=== PATIENT | female | born 2000 | race Caucasian/White ===

== ENCOUNTER 2023-11-04 08:15 | Outpatient (RCR) | payer MEDICAID, SELFPAY | END 2024-01-31 23:59 | disposition home or self-care (01) | LOC: ANHLAB 08:15 | PROVIDERS: Visit Provider Obstetrics & Gynecology | DX: O36.0130 Maternal care for anti-D [Rh] antibodies, third trimester, not applicable or unspecified (principal); O20.0 Threatened abortion; Z3A.00 Weeks of gestation of pregnancy not specified | CPT/HCPCS: 36415; 84702; 85461; 86850; 86900; 86901 ==

== ENCOUNTER 2023-11-04 08:36 | Emergency (ER) | payer MEDICAID, SELFPAY ==
--- NOTE | ~2023-11-04 | US_ITS ---
US OB <= 14 weeks fetus DATE: 11/04/2023 11:14 INDICATION: Intermittent vaginal spotting/bleeding for 3 days. No pelvic pain. Positive urine pregnan cy test. TECHNIQUE: Real-time and color flow imaging and Doppler analysis COMPARISON: None FINDINGS: Uterus measures 11.6 cm vertical and 4.9 cm anteroposterior dimension. Live single intrauterine gestation is identified. pole and yolk sac are identified. heart rate 141 bpm. [place]-rump length of 1.02 cm is consistent with 7 weeks 1 day +/- 5 days estimated gestational age wi th NENA of 06/21/2024. Right ovary 3.7 x 2.3 x 2.5 cm with vascular flow. There is a 1.8 x 1.5 cm right corpus luteum cyst. Left ovary 2.9 x 1.6 x 1.8 cm, with vascular flow. No pelvic mass lesion or abnormal pelvic fluid collection is detected. IMPRESSION: Early intrauterine gestational Estimated gestational age of 7 weeks 1 day +/- 5 days NENA: 06/21/2019 Reviewed, dictated and finalized at [facility] Reviewed, dictated and finalized at [facility].
[2023-11-04 08:39] VITALS: BP 131/97; PULSE 100; RESP 19; TEMP 36.9; O2SAT 97
--- NOTE | 2023-11-04 10:33 | ED.FEMALEGU ---
HPI - Female Genitourinary General Chief complaint: Vaginal Bleeding Stated complaint: 8 Weeks Preg, Spotting Time Seen by Provider: 11/04/23 09:51 Source: patient and other (boyfriend) Mode of arrival: ambulatory Limitations: no limitations History of Present Illness HPI Narrative: Patient is a 23 yo female at estimated 8weeks by report who presents with vaginal bleeding/spotting which started . She had gotten a BHCG drawn 11/01 and had a level drawn earlier this morning outpatient. She is due to establish with Ly Scott through [facility] at an appointment coming up Monday but otherwise has not had confirmation of an intrauterine (no imaging yet). She Had a positive home test and a positive test though [facility]. She has had abdominal cramping for the last few days, right greater than left. Not yet taken anything for pain. No history of STIs. Sexually active with only 1 male partner (boyfriend Gunner) in the past few months. 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 HEAD: Normocephalic, atraumatic. EYES: Non injected, non icteric ENT: Nares clear, no rhinorrhea or epistaxis. NECK: Supple. CHEST: Speaking in full sentences. No respiratory distress. HEART: Regular rate and rhythm. . ABDOMEN: Soft, nondistended. EXTREMITIES: Normal range of motion. No edema. : Pelvic exam performed with nurse astrochemist Zach present. Normal external appearance of genitalia. White vaginal discharge but otherwise without ja blood in vaginal vault. Cervix closed. SKIN: Warm, dry, no rash. NEURO: No focal deficits. Alert and oriented x3. PSYCH: Normal mood and affect. Course Vital Signs Vital signs: Vital Signs Temperature 98.4 F 11/04/23 08:39 Pulse Rate 100 11/04/23 08:39 Respiratory Rate 19 11/04/23 08:39 Blood Pressure 131/97 H 11/04/23 08:39 Pulse Oximetry 97 11/04/23 08:39 Temperature 98.4 F 11/04/23 08:39 Pulse Rate 83 11/04/23 12:36 Respiratory Rate 18 11/04/23 12:36 Blood Pressure 125/78 11/04/23 12:36 Pulse Oximetry 98 11/04/23 12:36 MDM - Female Genitourinary MDM Narrative Medical decision making narrative: This patient is a 23 yo G 1 P 0000 female at 7w6d by reported LMP 09/10/23 who comes to the emergency department with vaginal bleeding/spotting. In the emergency department she is afebrile and hemodynamically stable though with elevated diastolic BP. Beta-hCG had been obtained in outpatient setting prior to arrival and is >65,000, well above the discriminatory zone so proceed with ultrasound imaging. Patient given acetaminophen. This demonstrates IUP. Cervix closed on pelvic. Trace leukocyte esterase without obvious or ja bacteriuria. Will follow ACOG guidelines and defer treatment since otherwise asymptomatic and not a positive urine culture. Discussed the level of uncertainty of outcome at this point with patient and her partner. Discussed the possiblity of first trimester bleeding continuing with normal versus threatened miscarriage. Given <11 weeks with cardiac activity 90% progress to term. Encouraged her to keep upcoming ObGyn appointment and return to the ED with strict return precautions (syncope, heavy vaginal bleeding with parameters discussed, intractable pain). Patient verifies understanding. Will continue to take her vitamins and Rx for acetaminophen; educated this is safe during . Discharged in stable condition. Differential Diagnosis Differential diagnosis: Likely urinary tract
[2023-11-04 10:40] LABS: Appearance Urine Clear (Clear); Bacteria Urine Rare /hpf; Bilirubin Urine Negative (Negative); Blood Urine Negative (Negative); Color Urine Yellow (Yellow); Glucose Urine UA Negative (Negative); Ketones Urine Negative (Negative); Leukocyte Esterase Ur Trace LEU/UL (Negative); Nitrate Urine Negative (Negative); Non Pathogenic Casts 0-2; Protein Urine Negative (Negative); RBC Urine 0-2 /hpf (0-2); Specific Grav Ur 1.016 (1.001-1.035); Squamous Epithelial Cell Urine Occasional /hpf (Few); WBC Urine 0-5 /hpf (0-3)
[2023-11-04] MEDS: ACETAMINOPHEN 500 MG TABLET 1000 MG PO (10:41)
[2023-11-04 10:42] LABS: Add Urine Microscopic? YES
[2023-11-04 11:02] LABS: Alanine Aminotransferase 20 U/L (6-35); Albumin Level 3.7 g/dL (3.5-5.1); Alkaline Phosphatase 55 U/L (38-126); Anion Gap 4 mmol/L (4-12); Aspartate Amino Transferase 26 U/L (14-36); Bilirubin,Total 0.4 mg/dL (0.2-1.3); Blood Urea Nitrogen 7 mg/dL (7-17); Calcium 8.7 mg/dL (8.4-10.2); Carbon Dioxide 23 mmol/L (22-30); Chloride 108 mmol/L (98-107); Estimated CRCL calculation 115 ml/min; Estimated Glomerular Filt Rate > 60; Glucose 87 mg/dL (65-110); Prothrombin Time 13.5 Seconds (11.1-14.7); Sodium 135 mmol/L (137-145)
[2023-11-04 11:03] LABS: Partial Thromboplastin Time 26.6 Seconds (22.3-36.8)
[2023-11-04 11:48] LABS: Basophils Percent Auto 0.4 % (0.2-1.2); Eosinophils Absolute Auto 0.2 K/mm3 (0-0.3); Eosinophils Percent Auto 2.2 % (0-4.4); Hematocrit 36.7 % (37.0-47.0); Immature Granulocyte Absolute 0.03 K/mm3 (0.00-0.031); Immature Granulocyte Percent A 0.3 % (0-0.5); Lymphocytes Absolute Auto 2.47 K/mm3 (0.9-3.2); Lymphocytes Percent Auto 25.4 % (18.3-44.2); Mean Corpuscular HGB Conc 35.4 g/dl (32-36); Mean Corpuscular Hemoglobin 30.2 pg (26-34); Mean Corpuscular Volume 85.3 fl (80-100); Mean Platelet Volume 9.5 fl (7.4-10.4); Monocytes Absolute Auto 0.8 K/mm3 (0.1-0.6); Neutrophils Absolute Auto 6.2 K/mm3 (1.3-6.7); Neutrophils Percent Auto 63.7 % (45.5-73.1); Platelet Count Result 303 k/mm3 (150-375); Red Cell Distribution Width 12.6 % (11.5-14.5); White Blood Count 9.7 K/mm3 (4.5-10.0)
[2023-11-04 12:36] VITALS: BP 125/78; PULSE 83; RESP 18; O2SAT 98
== END 2023-11-04 12:37 | disposition home or self-care (01) ==
PROVIDERS: Emergency Provider Student in an Organized Health Care Education/Training Program
DX: O20.0 Threatened abortion (principal); Z3A.01 Less than 8 weeks gestation of pregnancy
CPT/HCPCS: 36415; 76801; 80053; 81001; 81025; 84702; 85025; 85461; 85610; 85730; 86850; 86900; 86901; 99284; A9270

== ENCOUNTER 2024-03-28 21:12 | Observation (INO) | payer MEDICAID, SELFPAY ==
[2024-03-28] VITALS (12 sets, daily range): BP systolic 118–133; BP diastolic 60–79; PULSE 86–112; O2SAT 97–99; BMI 34.1
[2024-03-28 21:41] LABS: Add Urine Microscopic? YES; Appearance Urine Clear (Clear); Bacteria Urine None Seen /hpf; Bilirubin Urine Negative (Negative); Blood Urine Negative (Negative); Color Urine Yellow (Yellow); Glucose Urine UA Negative (Negative); Ketones Urine Trace mg/dL (Negative); Leukocyte Esterase Ur Trace LEU/UL (Negative); Nitrate Urine Negative (Negative); Non Pathogenic Casts 0-2; Protein Urine Negative (Negative); RBC Urine 0-2 /hpf (0-2); Specific Grav Ur 1.008 (1.001-1.035); Squamous Epithelial Cell Urine None Seen /hpf (Few); Urobilinogen Urine 0.2 mg/dL (<2.0); WBC Urine 0-5 /hpf (0-3); pH Urine 6.5 (5.0-9.0)
[2024-03-28] MEDS: CYCLOBENZAPRINE HCL 5 MG TABLET PO (22:00)
[2024-03-28] MEDS: ACETAMINOPHEN 500 MG TABLET 1000 MG PO (22:00)
--- NOTE | 2024-03-28 22:03 | OBADM ---
This patient, Savannah Love, admitted to the OB room OB Post 117 for observation. Patient/family oriented to hospital policies and general routines including ID bracelet, bed and alarms, visiting hours, pain management, procedures, bathroom and other care routines, personal items, smoking policy, room service/diet, and visiting hours. Patient/Family are encouraged to report perceived risks to care and to ask questions if they do not understand what they are told or what they should do.
--- NOTE | 2024-04-24 07:37 | P.PNOB_ITS ---
OB - Triage/Final Diagnosis Visit Information Comments/Additional reasons for admission: I have assessed the risk for this patient, Savannah Love, and determined that she would benefit from observation care. Evaluation Laboratory results: Laboratory Tests 03/28/24 21:31 Urine Color Yellow Urine Appearance Clear Urine pH 6.5 Ur Specific [place] 1.008 Urine Protein Negative Urine Glucose (UA) Negative Urine Ketones Trace H Ur Blood (Man) Negative Urine Nitrate Negative Urine Bilirubin Negative Urine Urobilinogen 0.2 Ur Leukocyte Esterase Trace H Urine RBC 0-2 Urine WBC 0-5 Ur Squamous Epith Cells None seen Urine Bacteria None seen Urine Casts 0-2 Final Diagnosis (1) Abdominal pain: Code(s): R10.9 - Unspecified abdominal pain Status: Acute
== END 2024-03-28 22:18 | disposition home or self-care (01) ==
PROVIDERS: Admitting Provider Obstetrics & Gynecology; Visit Provider Obstetrics & Gynecology
DX: O26.892 Other specified pregnancy related conditions, second trimester (principal); R10.9 Unspecified abdominal pain; Z3A.27 27 weeks gestation of pregnancy
CPT/HCPCS: 59025; 81001; A9270; G0378; G0379

== ENCOUNTER 2024-05-24 15:47 | Outpatient (RCR) | payer OTHER, SELFPAY ==
[2024-05-24 16:36] VITALS: BP 138/85; PULSE 113
== END 2024-08-22 23:59 | disposition home or self-care (01) ==
LOC: ANHOBOP 15:47
PROVIDERS: Visit Provider Obstetrics & Gynecology
DX: O36.8130 Decreased fetal movements, third trimester, not applicable or unspecified (principal); Z3A.35 35 weeks gestation of pregnancy
CPT/HCPCS: 59025

== ENCOUNTER 2024-06-04 13:27 | Outpatient (CLI) | payer OTHER, SELFPAY ==
[2024-06-04] VITALS (7 sets, daily range): BP systolic 129–151; BP diastolic 88–101; PULSE 99–110; RESP 16; TEMP 37
--- NOTE | 2024-06-04 14:12 | PC.NURSE ---
Dr. Cruz on unit and informed of pt's arrival with c/o possible leakage of fluid. ROM plus has a couple more minutes, but so far is negative. FHT's reactive. Pt having mild contractions she feels as tightening. Informed of elevated BP's, no headache, visual disturbance, epigastric/RUQ pain. Order received for PIH labs if ROM plus is negative.
[2024-06-04 15:08] LABS: Basophils Percent Auto 0.3 % (0.2-1.2); Eosinophils Absolute Auto 0.1 K/mm3 (0-0.3); Eosinophils Percent Auto 0.8 % (0-4.4); Hematocrit 32.5 % (37.0-47.0); Hemoglobin 11.1 g/dL (12.0-15.0); Immature Granulocyte Absolute 0.41 K/mm3 (0.00-0.031); Immature Granulocyte Percent A 3.4 % (0-0.5); Lymphocytes Absolute Auto 1.78 K/mm3 (0.9-3.2); Lymphocytes Percent Auto 14.9 % (18.3-44.2); Mean Corpuscular HGB Conc 34.2 g/dl (32-36); Mean Corpuscular Hemoglobin 30.7 pg (26-34); Mean Corpuscular Volume 89.8 fl (80-100); Mean Platelet Volume 10.4 fl (7.4-10.4); Monocytes Percent Auto 8.1 % (2.6-8.5); Neutrophils Absolute Auto 8.7 K/mm3 (1.3-6.7); Neutrophils Percent Auto 72.5 % (45.5-73.1); Platelet Count Result 205 k/mm3 (150-375); Red Blood Count 3.62 M/mm3 (4.2-5.4); Red Cell Distribution Width 14.5 % (11.5-14.5)
[2024-06-04 15:16] LABS: Add Urine Microscopic? YES; Appearance Urine Clear (Clear); Bacteria Urine None Seen /hpf; Bilirubin Urine Negative (Negative); Blood Urine Negative (Negative); Color Urine Yellow (Yellow); Glucose Urine UA Negative (Negative); Ketones Urine Negative (Negative); Leukocyte Esterase Ur Negative LEU/UL (Negative); Nitrate Urine Negative (Negative); Non Pathogenic Casts 0-2; Protein Urine 1+ mg/dL (Negative); RBC Urine 0-2 /hpf (0-2); Specific Grav Ur 1.011 (1.001-1.035); Squamous Epithelial Cell Urine None Seen /hpf (Few); Urobilinogen Urine 0.2 mg/dL (<2.0); WBC Urine 0-5 /hpf (0-3)
[2024-06-04 15:18] LABS: OBXCEM ROM Plus Negative (Negative)
[2024-06-04 15:19] LABS: Alanine Aminotransferase 16 U/L (6-35); Albumin Level 2.9 g/dL (3.5-5.1); Alkaline Phosphatase 155 U/L (38-126); Anion Gap 1 mmol/L (4-12); Aspartate Amino Transferase 20 U/L (14-36); Bilirubin,Total 0.3 mg/dL (0.2-1.3); Blood Urea Nitrogen 12 mg/dL (7-17); Calcium 9.5 mg/dL (8.4-10.2); Carbon Dioxide 20 mmol/L (22-30); Chloride 110 mmol/L (98-107); Estimated Glomerular Filt Rate > 60; Glucose 86 mg/dL (65-110); Potassium 4.2 mmol/L (3.4-5.0); Sodium 131 mmol/L (137-145); Uric Acid 4.4 mg/dL (2.5-7.5)
[2024-06-04 15:31] LABS: Creatinine Urine 63.9 mg/dL; Total Protein Urine Random 47 mg/dL; Ur Ttl Prot Creatinine Ratio 0.74 mg/mg (0-0.20)
--- NOTE | 2024-06-04 15:38 | PC.NURSE ---
Dr. Cruz informed of lab results and updated on BP's. Pt is 37 3/7 wks and is scheduled for a primary C/S for breech presentation on 06/17/23. Pt is scheduled to see Dr. Scott in the office on Monday06/07/24. Dr. Cruz wants pt to be scheduled for C/S on Monday06/07/24 at 1200. He plans to text Dr. Scott and will have office staff call surgery scheduling on to officially schedule pt.
--- NOTE | 2024-06-04 16:00 | PC.NURSE ---
Reviewed preeclampsia precautions and labor precautions with pt. Discussed ERAS protocol and brochure given. Pt also given order for pre-op labs to be done on 06/06/24 at outpatient lab.
== END 2024-06-04 16:03 | disposition home or self-care (01) ==
LOC: ANHOBOP 14:26 → ANHLDR 14:27
PROVIDERS: Obstetrics & Gynecology; Visit Provider Obstetrics & Gynecology
DX: O42.90 Premature rupture of membranes, unspecified as to length of time between rupture and onset of labor, unspecified weeks of gestation (principal); Z3A.00 Weeks of gestation of pregnancy not specified
CPT/HCPCS: 36415; 59025; 80053; 81001; 82570; 84112; 84156; 84550; 85025; 99199

== ENCOUNTER 2024-06-06 09:27 | Outpatient (CLI) | payer OTHER, SELFPAY ==
[2024-06-06 10:00] LABS: Basophils Percent Auto 0.2 % (0.2-1.2); Eosinophils Absolute Auto 0.1 K/mm3 (0-0.3); Eosinophils Percent Auto 0.8 % (0-4.4); Hematocrit 33.6 % (37.0-47.0); Hemoglobin 11.3 g/dL (12.0-15.0); Immature Granulocyte Absolute 0.34 K/mm3 (0.00-0.031); Immature Granulocyte Percent A 2.7 % (0-0.5); Lymphocytes Absolute Auto 1.83 K/mm3 (0.9-3.2); Lymphocytes Percent Auto 14.6 % (18.3-44.2); Mean Corpuscular HGB Conc 33.6 g/dl (32-36); Mean Corpuscular Hemoglobin 30.9 pg (26-34); Mean Corpuscular Volume 91.8 fl (80-100); Mean Platelet Volume 10.2 fl (7.4-10.4); Monocytes Absolute Auto 0.8 K/mm3 (0.1-0.6); Monocytes Percent Auto 6.1 % (2.6-8.5); Neutrophils Absolute Auto 9.5 K/mm3 (1.3-6.7); Neutrophils Percent Auto 75.6 % (45.5-73.1); Platelet Count Result 186 k/mm3 (150-375); Red Blood Count 3.66 M/mm3 (4.2-5.4); Red Cell Distribution Width 14.6 % (11.5-14.5); White Blood Count 12.6 K/mm3 (4.5-10.0)
[2024-06-06 10:41] LABS: Alanine Aminotransferase 15 U/L (6-35); Albumin Level 2.7 g/dL (3.5-5.1); Alkaline Phosphatase 166 U/L (38-126); Anion Gap 3 mmol/L (4-12); Aspartate Amino Transferase 20 U/L (14-36); Bilirubin,Total 0.3 mg/dL (0.2-1.3); Blood Urea Nitrogen 13 mg/dL (7-17); Calcium 8.8 mg/dL (8.4-10.2); Carbon Dioxide 20 mmol/L (22-30); Chloride 109 mmol/L (98-107); Estimated Glomerular Filt Rate > 60; Glucose 92 mg/dL (65-110); Potassium 4.3 mmol/L (3.4-5.0); Sodium 132 mmol/L (137-145); Uric Acid 5.3 mg/dL (2.5-7.5)
[2024-06-06 10:53] LABS: HIV 1/2 Ab P24 Ag Result Negative (Negative)
[2024-06-06 18:51] LABS: Rapid Plasma Reagin Non-Reactive (NonReactive)
== END 2024-06-06 09:28 | disposition home or self-care (01) ==
LOC: ANHLAB 09:30
PROVIDERS: Visit Provider Obstetrics & Gynecology
DX: Z01.818 Encounter for other preprocedural examination (principal)
CPT/HCPCS: 36415; 80053; 84550; 85025; 86592; 86703; 86850; 86900; 86901; G0432

== ENCOUNTER 2024-06-07 10:00 | Inpatient (IN) | payer OTHER, SELFPAY ==
[2024-06-07] VITALS (45 sets, daily range): BP systolic 96–148; BP diastolic 65–118; PULSE 75–108; RESP 14–20; TEMP 36.4–36.7; O2SAT 96–100; BMI 40.4
--- NOTE | 2024-06-07 10:00 | LDADM ---
This patient, Savannah Love, was admitted to Labor/Delivery/Recovery 120 on 06/07/24 at 10:00. Plans for labor, pain management and were discussed with patient. Patient/family oriented to hospital policies and general routines including ID bracelet, bed and alarms, visiting hours, pain management, procedures, bathroom and other care routines, personal items, smoking policy, room service/diet and guest tray routines, security routines, and visiting hours. Patient/Family are encouraged to report perceived risks to care and to ask questions if they do not understand what they are told or what they should do. See OBIX for further documentation.
[2024-06-07] MEDS: LACTATED RINGERS 1,000 ML 125 ML IV CONT ×2 (10:44→11:50)
[2024-06-07] MEDS: ACETAMINOPHEN 500 MG TABLET 1000 MG PO (11:08)
--- NOTE | 2024-06-07 11:18 | WPDANESEPPF ---
Anes - Initial Pre Proc Eval Procedure: Operation Date: 06/07/24 12:00 Proposed Procedures p Primary Section - Jai Scott MD Date/Time: 06/07/24 11:18 Surgeon: Jai Scott MD Pre Op Diagnosis: C/Section Patient Data Age: 23 Gender: F Height: 1.55 m Weight: 97 kg Last Vital Signs Pulse 87 06/07/24 11:12 BP 122/74 06/07/24 11:12 Allergies Allergy/AdvReac Type Severity Reaction Status Date / Time clindamycin Allergy Chest Pain Verified 06/04/24 14:59 Home Medications ?Medication ?Instructions ?Recorded ?Confirmed ?Type acetaminophen 500 mg capsule 1,000 mg (2 x 500 mg) PO Q6H PRN 11/04/23 06/04/24 Rx pain #20 caps albuterol sulfate 90 mcg/actuation 2 inh inhalation Q4H PRN shortness 05/22/24 06/07/24 History aerosol inhaler of breath or wheezing cetirizine 10 mg tablet (24Hour 10 mg PO DAILY PRN allergy symptoms 05/22/24 06/04/24 History Allergy) ferrous sulfate-folic acid ER 160 1 tablet PO DAILY 05/22/24 06/07/24 History mg-0.4 mg tablet ext.release 24 hr vit no.95-ferrous 1 tablet PO DAILY 05/22/24 06/07/24 History fumarate 28 mg-folic acid 800 mcg tablet () sertraline 100 mg tablet (Zoloft) 100 mg PO DAILY 05/22/24 06/07/24 History famotidine 20 mg tablet (Pepcid) 20 mg PO HS 06/04/24 06/07/24 History Patient hx anesthesia problems: none Family hx anesthesia problems: none Results Review: All pre-operative results and documents have been reviewed as part of the pre-operative evaluation. [facility] Past Medical History Medical History (Updated 06/07/24 @ 11:18 by Steven Ruby DO) Asthma Social History Social History (Updated 11/04/23 @ 12:19 by Ebony Olivo MD) Smoking status: Never smoker Substance use: former Other substance usage details: thc Do You Feel Safe in your Home?: Yes Lack of Transportation: No Lack of Food: Never True Current Housing: I Have Housing Concerned About Future Housing: No Difficulty Paying Gas/Electric Bills: No Difficulty Paying for Meds: No Currently Unemployed: No Education: Associate Degree Difficulty w/ Childcare or Family Care: No Occupation/Education: occupation 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 Informed Consent: The patient's anesthetic plan and its attendant risks and benefits were discussed with the patient/family/POA. Questions were solicited and answers provided to the satisfaction of the patient/family/POA.
[2024-06-07] MEDS: FAMOTIDINE 20 MG/2 ML VIAL IV PUSH (12:01)
[2024-06-07] MEDS: ONDANSETRON INJ 4 MG/2 ML VIAL IV PUSH (12:02)
--- NOTE | 2024-06-07 12:04 | PM.IMHP ---
H&P: HPI History of Present Illness Date/Time: 06/07/24 12:04 Chief Complaint: gestational hypertension Narrative: Patient is a 23 year old G1 at 37w6d who presents for primary c section, indicated for gestational hypertension and breech presentation. She was seen in OB triage 06/04 with elevated blood pressures and has meet criteria for gestational hypertension. She denies headaches, vision changes, chest pain, dyspnea, RUQ pain or epigastric pain. She reports good movement. Her has been otherwise complicated by breech presentation, confirmed on admission today. Review of Systems Review of Systems: All systems reviewed & are unremarkable except as noted in HPI and below PMFSH Past Medical History Medical History Asthma Social History Social History Smoking status: Never smoker Substance use: former Other substance usage details: thc Do You Feel Safe in your Home?: Yes Lack of Transportation: No Lack of Food: Never True Current Housing: I Have Housing Concerned About Future Housing: No Difficulty Paying Gas/Electric Bills: No Difficulty Paying for Meds: No Currently Unemployed: No Education: Associate Degree Difficulty w/ Childcare or Family Care: No Occupation/Education: occupation 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 Meds Home Medications and Allergies Home Medications ?Medication ?Instructions ?Recorded ?Confirmed ?Type acetaminophen 500 mg capsule 1,000 mg (2 x 500 mg) PO Q6H PRN 11/04/23 06/04/24 Rx pain #20 caps albuterol sulfate 90 mcg/actuation 2 inh inhalation Q4H PRN shortness 05/22/24 06/07/24 History aerosol inhaler of breath or wheezing cetirizine 10 mg tablet (24Hour 10 mg PO DAILY PRN allergy symptoms 05/22/24 06/04/24 History Allergy) ferrous sulfate-folic acid ER 160 1 tablet PO DAILY 05/22/24 06/07/24 History mg-0.4 mg tablet ext.release 24 hr vit no.95-ferrous 1 tablet PO DAILY 05/22/24 06/07/24 History fumarate 28 mg-folic acid 800 mcg tablet () sertraline 100 mg tablet (Zoloft) 100 mg PO DAILY 12/18/24 01/03/25 History famotidine 20 mg tablet (Pepcid) 20 mg PO HS 06/04/24 06/07/24 History Allergies Allergy/AdvReac Type Severity Reaction Status Date / Time clindamycin Allergy Chest Pain Verified 06/04/24 14:59 Vital Signs Vital Signs - 24 hr 06/07/24 11:12 06/07/24 11:30 06/07/24 11:45 Pulse Rate 87 87 93 Blood Pressure 122/74 134/85 144/90 H Exam Const: General: comfortable and no acute distress HENMT: Mouth: Yes moist mucous membranes Eyes: General: appearance normal, both eyes and all related structures Resp: Effort & Inspection: normal respiratory effort Cardio: Rate: regular rate GI: GI Palp: Yes Soft to palpation and No Tenderness to palpation present (GI) Skin: General skin exam: normal color Extrem: General: normal to inspection Psych: Mental Status: mental status grossly normal Assessment and Plan Assessment and plan (1) Gestational hypertension: Code(s): O13.9 - Gestational [-induced] hypertension without significant proteinuria, unspecified trimester Status: Acute Assessment and Plan: - asymptomatic - BP normotensive to mild range since admission - labs wnl - will proceed with delivery given gestational age (2) Breech presentation: Code(s): O32.1XX0 - Maternal care for breech presentation, not applicable or unspecified Status: Acute Assessment and Plan: - breech presentation confirmed on admission - risks and benefits of primary c section vs external cephalic version discussed with patient, who would like to proceed with primary c section
[2024-06-07] MEDS: ceFAZolin 2 GM/D5W 50 ML 2 GM/50 ML BAG IVPB (12:09)
--- NOTE | 2024-06-07 12:59 | W.PM.OBCSD ---
OB - Delivery Note Procedure Delivery date: 06/07/24 Pre-op diagnosis: Breech Presentation and Gestational Hypertension Post-op Diagnosis: Same Induction method: None Delivery monitor: External FHT Prior to decision for section, ACOG/SM labor guidelines were considered and discussed with the patient and staff. Decision made to proceed with the section.: Yes Procedure Performed: Primary Primary branch: low cervical, transverse Surgeon: Jai Scott MD Anesthesia type: Epidural Description of Procedure/Findings: The patient was taken to the operating room where she was placed in the dorsal supine position with a leftward tilt. The electronic monitor was placed and heart rate was found to be reassuring. She was prepped and draped in the normal sterile fashion, and anesthesia was checked to be adequate. A Pfannenstiel skin incision was made with the scalpel and carried through to the underlying layer of fascia with the scalpel. The fascia was incised in the midline and the incision extended laterally with the Prince scissors. The superior aspect of the fascial incision was then grasped with Armen clamps, elevated, and the underlying rectus muscles dissected off bluntly and with Prince scissors. Attention was then turned to the inferior aspect of the fascial incision, which in similar fashion was grasped, elevated, and the rectus muscles dissected off.? The rectus muscles were then in the midline, and the peritoneum entered bluntly. The peritoneal incision was extended superiorly and inferiorly with good visualization of the bladder. With the bladder blade providing retraction and visualization, the lower uterine segment was incised in a transverse fashion with the scalpel. The uterine incision was then extended laterally. The bladder blade was removed and the 's head was elevated and delivered atraumatically. The remainder of the was then delivered without difficulty, and the infant's nose and mouth were suctioned with the bulb suction. The umbilical cord was doubly clamped and cut. The infant was then handed off to the waiting nursing staff. Specimens then obtained as listed below. The placenta was then removed manually and the uterus was exteriorized and cleared of all clots and debris. The uterine incision was repaired with 0-Monocryl in a running, interlocked fashion. The posterior cul-de-sac was manually cleared of all clots and debris. The uterus was returned to the abdomen. The gutters were then manually cleared of all clots and debris.? The uterine incision was visualized to be hemostatic. The fascia was reapproximated with 0-Vicryl in a running fashion. The subcutaneous tissues were irrigated with warmed normal saline, and hemostasis was assured. The subcutaneous tissue was greater than 2 cm and closed in a running fashion with 2-0 plain gut suture.? The skin was closed with 4-0 monocryl in a running subcuticular stitch. Fundal pressure was applied to express remaining intrauterine clots and debris. The patient tolerated the procedure well. Sponge, lap, and needle counts were correct times three per nursing. The patient was taken to the recovery room in stable condition. Estimated Blood Loss: 640 Pathology: None sent Complications: No immediate complications Condition: Stable Disposition: Floor [place] Baby Date of : 06/07/24 Gestational Age by Date: 37 gender: Male Weight (pounds): 6 Weight (ounces): 3 presentation: breech position: Left Sacrum Posterior Placenta delivery description: Expressed Cord Vessel Description: 3 Vessels and Delayed Cord Clamping
[2024-06-07] MEDS: OXYTOCIN 30 UNITS/NS 500 ML 30 UNITS/500 ML BAG 125 UNITS IV CONT (13:42)
--- NOTE | 2024-06-07 15:13 | OBPPTRN ---
Patient transferred to post room # 285 via stretcher. Support person present. Oriented to unit, room, information board, rooming in, admission packet and security measures. Patient verbalizes understanding.
[2024-06-07] MEDS: DEXTROSE 5%/0.45% SOD CHL 1,000 ML 125 ML IV CONT (17:12)
[2024-06-07] MEDS: ACETAMINOPHEN 325 MG TABLET 650 MG PO ×2 (17:13→23:50)
[2024-06-07] MEDS: DOCUSATE SODIUM 100 MG CAPSULE PO (17:14)
[2024-06-07] MEDS: KETOROLAC 15 MG/ML VIAL (*BKC) IV PUSH ×2 (17:14→23:50)
[2024-06-07] MEDS: SIMETHICONE 80 MG TAB.CHEW PO (17:14)
[2024-06-07] MEDS: LIDOCAINE 5% PATCH 1 PATCH TRANSDERM (17:15)
--- NOTE | 2024-06-07 17:45 | PC.NURSE ---
Patient feeding so went to room to observe latch. Baby was holding the nipple in his mouth but never sucked while RN was in the room. He fed in cradle on the right breast for 5 minutes per mom. She said the left breast is harder to latch to. She has bruising on the areola, baby probably not latched to nipple. She has flatter nipples and somewhat wide set, tubular breasts. Showed mom football hold and how to make a bite for baby to get more breast in his mouth. He would not stir or open his mouth. Encouraged lots of skin to skin and offering the breast frequently, waking baby at least every 3 hours to attempt feeding. Mom has some breast pumps at home and had questions about pump/bottle feeding instead of breast. Discussed pros/cons and that it is ultimately her choice to decide what works best for her. Strongly encouraged calling for feeding assistance tonight and seeing the RN tomorrow. Mom agrees with this plan. Reported back to primary RN.
[2024-06-07] MEDS: SERTRALINE HCL 50 MG TABLET 100 MG PO (20:52)
[2024-06-08 04:40] VITALS: BP 135/86; PULSE 105; RESP 18; TEMP 36.6; O2SAT 98
[2024-06-08] MEDS: KETOROLAC 15 MG/ML VIAL (*BKC) IV PUSH (05:00)
[2024-06-08] MEDS: ACETAMINOPHEN 325 MG TABLET 650 MG PO ×4 (05:00→23:08)
[2024-06-08 05:29] LABS: Basophils Percent Auto 0.4 % (0.2-1.2); Eosinophils Absolute Auto 0.1 K/mm3 (0-0.3); Eosinophils Percent Auto 1.4 % (0-4.4); Hematocrit 25.9 % (37.0-47.0); Hemoglobin 8.6 g/dL (12.0-15.0); Immature Granulocyte Absolute 0.16 K/mm3 (0.00-0.031); Immature Granulocyte Percent A 1.9 % (0-0.5); Lymphocytes Absolute Auto 1.61 K/mm3 (0.9-3.2); Mean Corpuscular HGB Conc 33.2 g/dl (32-36); Mean Corpuscular Hemoglobin 30.8 pg (26-34); Mean Corpuscular Volume 92.8 fl (80-100); Mean Platelet Volume 10.5 fl (7.4-10.4); Monocytes Absolute Auto 0.7 K/mm3 (0.1-0.6); Monocytes Percent Auto 8.5 % (2.6-8.5); Neutrophils Absolute Auto 5.9 K/mm3 (1.3-6.7); Neutrophils Percent Auto 68.8 % (45.5-73.1); Platelet Count Result 147 k/mm3 (150-375); Red Blood Count 2.79 M/mm3 (4.2-5.4); Red Cell Distribution Width 14.6 % (11.5-14.5); White Blood Count 8.5 K/mm3 (4.5-10.0)
[2024-06-08 06:55] VITALS: BP 129/82; PULSE 99; RESP 16; TEMP 36.2
[2024-06-08] MEDS: SIMETHICONE 80 MG TAB.CHEW PO ×3 (06:58→17:20)
[2024-06-08] MEDS: DOCUSATE SODIUM 100 MG CAPSULE PO ×2 (06:58→17:20)
[2024-06-08] MEDS: POLYSACCHARIDE IRON COMPLEX 150 MG CAPSULE PO ×2 (06:58→17:20)
[2024-06-08] MEDS: MULTIVIT/MIN/PREN/FOL AC/IRON TABLET 1 TAB PO (06:58)
--- NOTE | 2024-06-08 09:25 | P.PNOB_ITS ---
OB - PN: Subj Subjective Date/time seen: 06/08/24 09:25 Interval history: PPD#1 s/p PLTCS Doing well, pain controlled Catheter removed this AM, awaiting spontaneous void Bleeding minimal Tolerating general diet Has not yet passed flatus , doing well OB - PN: Obj Data Labs 06/08/24 04:16 Labs: Laboratory Results - last 24 hr 06/08/24 04:16 WBC 8.5 RBC 2.79 L Hgb 8.6 L Hct 25.9 L MCV 92.8 MCH 30.8 MCHC 33.2 RDW 14.6 H Plt Count 147 L MPV 10.5 H Immature Gran % (Auto) 1.9 H Neut % (Auto) 68.8 Lymph % (Auto) 19.0 [place] % (Auto) 8.5 Eos % (Auto) 1.4 Baso % (Auto) 0.4 Lymph # (Auto) 1.61 [place] # (Auto) 0.7 H Eos # (Auto) 0.1 Baso # (Auto) 0.0 Abs Immat Gran (auto) 0.16 H Absolute Neuts (auto) 5.9 Absolute Nucleated RBC 0.000 Nucleated RBC % 0.0 OB - PN A/P Assessment and Plan (1) Gestational hypertension: Code(s): O13.9 - Gestational [-induced] hypertension without significant proteinuria, unspecified trimester Status: Acute Assessment and Plan: - asymptomatic - Bp overall normal since delivery - continue to monitor closely (2) S/P : Code(s): Z98.891 - History of uterine scar from previous surgery Status: Acute Plan day: 1 Plan: routine care Time Spent With Patient Time: Total time spent is greater than 50% in coordination of care (as documented) at patient's floor/unit and/or counseling patient: Review of Systems 2 Review of Systems: All systems reviewed & are unremarkable except as noted in HPI and below Exam 2 Const: General: comfortable and no acute distress O rientation/consciousness: patient oriented x3 Resp: Effort & Inspection: normal respiratory effort GI: GI Palp: Yes Soft to palpation and No Tenderness to palpation present (GI) Other: incision c/d/i
--- NOTE | 2024-06-08 10:29 | WPDANLDPN2 ---
Anes-Prog Note L&D Date/Time: 06/08/24 10:29 Comfortable throughout: section Neuraxial method: spinal Epidural/Spinal procedure site: clean & non-tender Neuro status: Neuro function grossly intact. Cardiovascular status: normal Respiratory status: normal Airway patency: baseline Mental status: baseline Post-Op hydration status: normal Vital Signs: Last Vital Signs Temp 97.2 F L 06/08/24 06:55 Pulse 99 06/08/24 06:55 Resp 16 06/08/24 06:55 BP 129/82 06/08/24 06:55 Pulse Ox 98 06/08/24 04:40 O2 Del Method Room Air 06/08/24 04:40 Pain score (VAS): 5 I/O: Intake & Output 06/07/24 06/08/24 06/08/24 23:59 07:59 15:59 Intake Total 500 Output Total 750 300 Balance -250 -300 Patient feedback: Patient satisfied with anesthetic care.
--- NOTE | 2024-06-08 10:30 | WPDANLDNPN2 ---
Anes-Prog Note L&D-Neuraxial Date/Time: 06/08/24 10:30 Neuraxial medications: intrathecal PF morphine Opiod-related complaints: none Patient feedback: Patient satisfied with post-operative pain management.
[2024-06-08] MEDS: IBUPROFEN 600 MG TABLET PO ×3 (11:06→23:08)
[2024-06-08 11:14] VITALS: BP 129/74; PULSE 98; RESP 16; TEMP 36.3
--- NOTE | 2024-06-08 14:05 | PC.NURSE ---
1300. Met with patient to assess and discuss needs related to feeding. Mother states it is her intention to combo feed, she would like to pump and be able to feed a bottle at times.Mom reports was circumcised this am and has been sleepy and not waking to feed since 0900. is sleeping at present with no feeding cues. Mom encouraged to continue with s2s and observe for feeding cues and attempt latch at this time. If is reluctant to latch, mom was encouraged to pump and collect colostrum to give to infant. Mom reports she has no pain when baby latches. Encouraged mother to breastfeed 8-12 times in 24 hours (approximately every 2-3 hours), watching for early feeding cues. If is sleepy, unwrap and place baby skin to skin. Discussed signs that infant is effectively , i.e. sufficient voids and stools, jaundice within normal limits, <10% weight loss from . Mother educated on milk production, supply and demand, and expectations for in the immediate period. Encouraged feeding on demand and feeding durations of 15 minutes or greater. Discussed breast/nipple care with good hand hygiene, signs of a correct latch, listening for infant swallows and documenting feedings on the feeding sheet. Mother instructed to call for assistance if infant will not feed every 3 hours, if there is discomfort with , or if mother has any other questions or concerns. resources provided including the Mom and Baby Guide and name/number on communication board. Mother verbalized understanding. Updated patient?s primary RN with education provided.?
[2024-06-08 17:15] VITALS: BP 129/78; PULSE 99; RESP 16; TEMP 36.1
[2024-06-08] MEDS: LIDOCAINE 5% PATCH 1 PATCH TRANSDERM (17:20)
[2024-06-08 20:54] VITALS: BP 125/82; PULSE 97; RESP 16; TEMP 37.1; O2SAT 97
[2024-06-08] MEDS: SERTRALINE HCL 50 MG TABLET 100 MG PO (22:00)
[2024-06-09] VITALS (7 sets, daily range): BP systolic 120–136; BP diastolic 54–90; PULSE 85–102; RESP 16; TEMP 36.1–36.9; O2SAT 96–99
[2024-06-09] MEDS: IBUPROFEN 600 MG TABLET PO ×4 (05:04→23:01)
[2024-06-09] MEDS: ACETAMINOPHEN 325 MG TABLET 650 MG PO ×4 (05:04→23:01)
[2024-06-09] MEDS: SIMETHICONE 80 MG TAB.CHEW PO ×3 (08:05→16:52)
[2024-06-09] MEDS: POLYSACCHARIDE IRON COMPLEX 150 MG CAPSULE PO ×2 (08:05→16:52)
[2024-06-09] MEDS: DOCUSATE SODIUM 100 MG CAPSULE PO ×2 (08:05→16:51)
[2024-06-09] MEDS: MULTIVIT/MIN/PREN/FOL AC/IRON TABLET 1 TAB PO (08:05)
--- NOTE | 2024-06-09 10:38 | P.PNOB_ITS ---
OB - PN: Subj Subjective Date/time seen: 06/09/24 10:38 Interval history: PPD#2 s/p PLTCS Doing well, pain controlled Voiding without issue Bleeding minimal Tolerating general diet Passing flatus , some formula supplementationl OB - PN: Obj Data Labs 06/08/24 04:16 OB - PN A/P Assessment and Plan (1) Gestational hypertension: Code(s): O13.9 - Gestational [-induced] hypertension without significant proteinuria, unspecified trimester Status: Acute Assessment and Plan: - asymptomatic - Bp overall normal since delivery - continue to monitor closely (2) S/P : Code(s): Z98.891 - History of uterine scar from previous surgery Status: Acute Plan day: 2 Plan: routine care Time Spent With Patient Time: Total time spent is greater than 50% in coordination of care (as documented) at patient's floor/unit and/or counseling patient: Review of Systems 2 Review of Systems: All systems reviewed & are unremarkable except as noted in HPI and below Exam 2 Const: General: comfortable and no acute distress O rientation/consciousness: patient oriented x3 Resp: Effort & Inspection: normal respiratory effort GI: GI Palp: Yes Soft to palpation and No Tenderness to palpation present (GI) Other: incision c/d/i
[2024-06-09] MEDS: SERTRALINE HCL 50 MG TABLET 100 MG PO (20:58)
[2024-06-10] MEDS: IBUPROFEN 600 MG TABLET PO ×2 (04:59→11:05)
[2024-06-10 05:00] VITALS: BP 128/85; PULSE 57
[2024-06-10] MEDS: ACETAMINOPHEN 325 MG TABLET 650 MG PO ×2 (05:00→11:05)
[2024-06-10 08:20] VITALS: BP 136/93; PULSE 95; RESP 18; TEMP 36.7; O2SAT 98
[2024-06-10] MEDS: DOCUSATE SODIUM 100 MG CAPSULE PO (09:33)
[2024-06-10] MEDS: MULTIVIT/MIN/PREN/FOL AC/IRON TABLET 1 TAB PO (09:33)
[2024-06-10] MEDS: SIMETHICONE 80 MG TAB.CHEW PO (09:33)
[2024-06-10] MEDS: POLYSACCHARIDE IRON COMPLEX 150 MG CAPSULE PO (09:33)
[2024-06-11 13:54] VITALS: BP 126/80; PULSE 100; RESP 18; TEMP 36.6; O2SAT 100
== END 2024-06-10 12:00 | disposition home or self-care (01) | DRG 540 ==
LOC: ANHLDR 10:14 → ANHOB2 15:20
PROVIDERS: Admitting Provider Obstetrics & Gynecology; Visit Provider Obstetrics & Gynecology
PROC: 10D00Z1 Extraction of Products of Conception, Low, Open Approach (ICD-10-PCS; CPT 59514; principal; 2024-06-07 12:00)
DX: O13.4 Gestational [pregnancy-induced] hypertension without significant proteinuria, complicating childbirth (principal); Z37.0 Single live birth; Z3A.37 37 weeks gestation of pregnancy; O32.1XX0 Maternal care for breech presentation, not applicable or unspecified
CPT/HCPCS: 36415; 85025; A9270; J0690; J1885; J2274; J2405; J2590; J7120